=== PATIENT | female | born 2000 | race Caucasian/White ===

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

== ENCOUNTER 2023-12-10 00:01 | Emergency (ER) | payer BC ==
[2023-12-10 00:15] VITALS: BP 127/86; PULSE 86; RESP 18; TEMP 99.4; BMI 25.7
[2023-12-10] MEDS ORDERED: CLINDAMYCIN HCL 150 MG CAPSULE (FP) ONE (00:24)
[2023-12-10] MEDS ORDERED: KETOROLAC TROMETHAMINE 60 MG/2 ML VIAL ONE (00:24)
[2023-12-10] MEDS: KETOROLAC TROMETHAMINE 60 MG/2 ML VIAL IM ONE (00:46)
[2023-12-10] MEDS: CLINDAMYCIN HCL 300 MG CAPSULE PO ONE (00:58)
== END 2023-12-10 01:04 | disposition home or self-care (01) ==
LOC: FER 00:01
PROC: 3E0133Z Introduction of Anti-inflammatory into Subcutaneous Tissue, Percutaneous Approach (ICD-10-PCS; principal; 2023-12-10)
DX: R51.9 Headache, unspecified (principal); K04.7 Periapical abscess without sinus
CPT/HCPCS: 99284-25